=== PATIENT | female | born 1935 | race Hispanic/Latino ===

== ENCOUNTER 2018-12-20 16:18 | Inpatient (IN) | payer MEDICARE, OTHER ==
[2018-12-20 16:18] VITALS: BMI 18.6
--- NOTE | 2018-12-20 17:31 | ED PDOC ---
HPI: Trauma/Fall - HPI Time Seen by Provider: 12/20/18 16:30 Chief Complaint (Nursing): Trauma Chief Complaint (Provider): Fall Type injury History Per: Patient History/Exam Limitations: no limitations Injury Occurred (Timing): Just Before Arrival Location Of Injury: Right: Face, Hip Additional Complaint(s): 83 year old female with a history of hypothyroidism, high cholesterol and peripheral vascular disease presents to the ED for evaluation of a injuries to her face and hip that occurred after a fall just prior to arrival. Patient reports as she was saying goodbye to her friend outside of her house, she tripped, scratching her face on a hedge and landing on her right side. Patient ranks pain as "like a 20" at her hip, worsened when she rotates her foot toward midline. She does not know when her last Tetanus shot was. Reports that she took one Tylenol before arrival given to her by her daughter, who accompanied patient to the ED. Offers no other complaints. PMD: Dr. Sears - Fall Fall:Prior To Injury: Tripped Past Medical History Reviewed: Historical Data, Nursing Documentation, Vital Signs Vital Signs: Last Vital Signs Temp 98.3 F 12/20/18 16:23 Pulse 93 H 12/20/18 16:23 Resp 16 12/20/18 16:23 BP 159/97 H 12/20/18 16:23 Pulse Ox 100 12/20/18 16:23 Primary Care Provider: Non [facility] Provider, - Medical History PMH: Hypercholesterolemia, Hypothyroidism - Surgical History Surgical History: Appendectomy Denies: Pacemaker Other surgeries: EVAR, exploratory laparatomy, total hysterectomy - Family History Family History: States: Unknown Family Hx - Home Medications Home Medications: Ambulatory Orders Medication Instructions Recorded Levothyroxine [Synthroid] 75 mcg PO DAILY 12/20/18 amLODIPine [Norvasc] 5 mg PO QPM 12/20/18 - Allergies Allergies/Adverse Reactions: Allergies Allergy/AdvReac Type Severity Reaction Status Date / Time No Known Allergies Allergy Verified 12/20/18 16:22 Review of Systems ROS Statement: Except As Marked, All Systems Reviewed And Found Negative Musculoskeletal: Positive for: Other (right hip pain) Skin: Positive for: Other (laceration to face) Physical Exam - Reviewed Nursing Documentation Reviewed: Yes Vital Signs Reviewed: Yes - Physical Exam Appears: Positive for: No Acute Distress Head Exam: Positive for: ATRAUMATIC, NORMAL INSPECTION, NORMOCEPHALIC Skin: Positive for: Normal Color, Warm, Dry Eye Exam: Positive for: EOMI, Normal appearance, PERRL Neck: Positive for: Normal, Painless ROM, Supple Cardiovascular/Chest: Positive for: Regular Rate, Rhythm. Negative for: Murmur Respiratory: Positive for: Normal Breath Sounds. Negative for: Respiratory Distress Pulses-Radial (L): 2+ Pulses-Radial (R): 2+ Gastrointestinal/Abdominal: Positive for: Soft, Other (surgical scars). Negative for: Tenderness Extremity: Positive for: Tenderness (to palpation of right anterior superior iliac spine and right greater trochanter), Other (difference in leg length; right leg shorter than left) Neurological/Psych: Positive for: Awake, Alert, Normal Tone, Oriented (x 3). Negative for: Motor/Sensory Deficits - Laboratory Results Result Diagrams: 12/21/18 10:15 12/20/18 17:27 - ECG O2 Sat by Pulse Oximetry: 100 (RA) Pulse Ox Interpretation: Normal Medical Decision Making Medical Decision Makin:53 MDM: Labs including coagulation tests EKG, CXR and hip w pelvis x-ray 1 mg Morphine for pain Reassess 20:18 Hip with pelvis x-ray FINDINGS: BONES: Note is made of an acute mildly displaced right femoral intertrochanteric fracture. JOINTS: No dislocation. The joint spaces are normal. SOFT TISSUES: The soft tissues are unremarkable. IMPRESSION: Acute mildly displaced right femoral intertrochanteric fracture. Case discussed with is consultant orthopedist, Dr. Mosley. Pt to be admitted under Dr. Ovalle. Discussed the fracture with the patient and her daughter. Pain controlled at this time. --- Scribe Attestation: Documented by Olamide Hahn, acting as a scribe for Erin Ramirez MD. Provider Scribe Attestation: All medical record entries made by the Scribe were at my direction and personally dictated by me. I have reviewed the chart and agree that the record accurately reflects my personal performance of the history, physical exam, medical decision making, and the department course for this patient. I have also personally directed, reviewed, and agree with the discharge instructions and disposition. Disposition - Clinical Impression Clinical Impression: Intertrochanteric fracture of right hip - Disposition Disposition Time: 20:42 Condition: STABLE
[2018-12-20 17:36] LABS: BASO % 0.2 % (0.0-2.0); EOS % 0.2 % (0.0-4.0); HEMOGLOBIN 14.6 g/dL (12.0-16.0); LYMPH # 0.4 K/uL (1.0-4.3); LYMPH % 4.8 % (20.0-40.0); MEAN CELL VOLUME 96.1 fl (81.0-99.0); MEAN CORPUSCULAR HEMOGLOBIN 31.9 pg (27.0-31.0); MEAN CORPUSCULAR HGB CONC 33.2 g/dL (33.0-37.0); MEAN PLATELET VOLUME 8.1 fl (7.2-11.7); MONO # 0.8 K/uL (0.0-0.8); MONO % 8.8 % (0.0-10.0); NEUT # 8.1 K/uL (1.8-7.0); PLATELET COUNT 164 K/uL (130-400); RBC 4.58 Mil/uL (3.80-5.20); WHITE BLOOD COUNT 9.4 K/uL (4.8-10.8)
[2018-12-20 17:43] LABS: BLOOD UREA NITROGEN 16 mg/dl (7-17); CALCIUM 9.2 mg/dL (8.4-10.2); GFR NON-AFRICAN AMERICAN > 60
[2018-12-20 17:45] LABS: INR 1.1; PROTHROMBIN TIME 12.1 Seconds (9.8-13.1)
[2018-12-20 17:48] LABS: PARTIAL THROMBOPLASTIN TIME 34.9 Seconds (25.6-37.1)
[2018-12-20 18:08] LABS: LARGE PLATELETS PRESENT; LYMPHOCYTE 4 % (20-50); MONOCYTE 11 % (0-10); NEUTROPHIL 84 % (42-75); PLATELET ESTIMATE NORMAL (NORMAL); REACTIVE LYMPHOCYTES 1 % (0-0); TOTAL CELLS COUNTED 100
[2018-12-20] MEDS ORDERED: Bacitracin 500 Units/gm Oint Foilpak UD ONE (18:12)
[2018-12-20] MEDS ORDERED: Morphine 4 MG/ML VIAL ONE (21:27)
[2018-12-20] MEDS ORDERED: Dextrose 5%/Lactated Ringer's 1,000 ML IV SCH (23:00)
[2018-12-21] MEDS: Levothyroxine 75 MCG TAB PO SCH (06:18)
--- NOTE | 2018-12-21 08:13 | CP.PCM.CON ---
History of Present Illness - History of Present Illness History of Present Illness: Orthopedic consult: Dr. Mosley Patient is an 83 y/o female who present with c/o R hip pain. She reports tripping over an oil line yesterday while at home working on her yard. She fell into a call onto her right side. She complains of pain located to the lateral aspect of her knee. She describes it at dull, intermittent and worse with movement, alleviated with rest. The pain is associated with swelling and limb deformity. She is unable to WB due to the pain. She did not use any assistive aids to ambulate prior to her fall. She denies any radiation of pain/nuumbness/tingling. She also denies CP/SOB/N/V/D/fever/dysuria/melena. She has significant history of abdominal aortic aneurysm repair with Dr. Wang. PMH: AAA, HTN, hypothyroid PSH: AAA repair, bilateral breast lumpectomy, NELLY meds: as per med rec NKDA SH: former smoker, denies ETOH/drug use. Lives at home with daughter. Has 2 flights of stairs. Review of Systems - Review of Systems All systems: reviewed and no additional remarkable complaints except Review of Systems: as per HPI Past Patient History - Past Medical History & Family History Past Medical History?: Yes Past Family History: Reviewed and not pertinent - Past Social History Smoking Status: Never Smoked - CARDIAC Hx Cardiac Disorders: Yes (TRIPLE A REPAIR,STENT PLACEMENT) Hx Hypertension: Yes Hx Peripheral Vascular Disease: Yes - NEUROLOGICAL Hx Paralysis: No - HEENT Hx HEENT Problems: (WEARS RX GLASSES) - ENDOCRINE/METABOLIC Hx Endocrine Disorders: Yes Hx Hypothyroidism: Yes - HEMATOLOGICAL/ONCOLOGICAL Hx Blood Transfusions: No Hx Blood Transfusion Reaction: No - MUSCULOSKELETAL/RHEUMATOLOGICAL Hx Musculoskeletal Disorders: Yes Hx Falls: Yes - GENITOURINARY/GYNECOLOGICAL Hx Genitourinary Disorders: Yes (LUMPECTOMY TO BOTH BREASTS,MASTITIS,LYMPH NODES REMOVED,TOTAL HYSTERECTOMY) - PSYCHIATRIC Hx Emotional Abuse: No Hx Physical Abuse: No Hx Substance Use: No - SURGICAL HISTORY Hx Appendectomy: Yes Hx Coronary Stent: Yes - ANESTHESIA Hx Anesthesia Reactions: Yes Hx Malignant Hyperthermia: No Meds Allergies/Adverse Reactions: Allergies Allergy/AdvReac Type Severity Reaction Status Date / Time No Known Allergies Allergy Verified 12/20/18 16:22 - Medications Medications: Current Medications Amlodipine Besylate (Norvasc) 5 mg PO QPM [facility] Last Admin: 12/20/18 23:43 Dose: 5 mg Dextrose/Lactated Ringer's (Dextrose 5%/Lactated Ringer's) 1,000 mls @ 80 mls/hr IV .[id number] [facility] Stop: 12/21/18 22:53 Last Admin: 12/20/18 23:42 Dose: 80 mls/hr Levothyroxine Sodium (Synthroid) 75 mcg PO DAILY@0630 [facility] Last Admin: 12/21/18 06:18 Dose: Not Given Morphine Sulfate (Morphine) 2 mg IVP Q4 PRN PRN Reason: Pain, severe (8-10) Pantoprazole Sodium (Protonix Inj) 40 mg IVP DAILY [facility] Physical Exam - Constitutional Appears: Well, No Acute Distress - Head Exam Head Exam: ATRAUMATIC, NORMOCEPHALIC - Eye Exam Eye Exam: EOMI, Normal appearance - ENT Exam ENT Exam: Mucous Membranes Moist Additional comments: right small facial lesion from fall - Respiratory Exam Respiratory Exam: NORMAL BREATHING PATTERN - Extremities Exam Additional comments: RLE: mild swelling +shortened/ER limb + tenderness over greater troch sensation intact SP/DP/TN motor intact EHL/FHL/TA/G pedal pulse intact calves soft NT b/l - Neurological Exam Neurological exam: Alert, Oriented x3 - Psychiatric Exam Psychiatric exam: Normal Affect, Normal Mood - Skin Skin Exam: Normal Color, Warm Results - Vital Signs Recent Vital Signs: Last Vital Signs Temp 98.1 F 12/21/18 00:28 Pulse 100 H 12/21/18 00:28 Resp 19 12/21/18 00:28 BP 150/85 12/21/18 00:28 Pulse Ox 95 12/21/18 00:28 - Labs Result Diagrams: 12/21/18 10:15 12/20/18 17:27 Labs: Laboratory Results - last 24 hr 12/20/18 12/20/18 12/20/18 17:27 17:27 17:27 WBC 9.4 RBC 4.58 Hgb 14.6 Hct 44.0 MCV 96.1 MCH 31.9 H MCHC 33.2 RDW 13.0 Plt Count 164 MPV 8.1 Neut % (Auto) 86.0 H Lymph % (Auto) 4.8 L [place] % (Auto) 8.8 Eos % (Auto) 0.2 Baso % (Auto) 0.2 Neut # (Auto) 8.1 H Lymph # (Auto) 0.4 L [place] # (Auto) 0.8 Eos # (Auto) 0.0 Baso # (Auto) 0.0 Neutrophils % (Manual) 84 H Lymphocytes % (Manual) 4 L Reactive Lymphs % 1 H Monocytes % (Manual) 11 H Platelet Estimate Normal Large Platelets Present PT 12.1 INR 1.1 APTT 34.9 Sodium 137 Potassium 3.9 Chloride 100 Carbon Dioxide 29 Anion Gap 12 BUN 16 Creatinine 0.7 Est GFR ( Amer) > 60 Est GFR (Non-Af Amer) > 60 Random Glucose 113 H Calcium 9.2 Blood Type Antibody Screen BBK History Checked 12/20/18 17:27 WBC RBC Hgb Hct MCV MCH MCHC RDW Plt Count MPV Neut % (Auto) Lymph % (Auto) [place] % (Auto) Eos % (Auto) Baso % (Auto) Neut # (Auto) Lymph # (Auto) [place] # (Auto) Eos # (Auto) Baso # (Auto) Neutrophils % (Manual) Lymphocytes % (Manual) Reactive Lymphs % Monocytes % (Manual) Platelet Estimate Large Platelets PT INR APTT Sodium Potassium Chloride Carbon Dioxide Anion Gap BUN Creatinine Est GFR ( Amer) Est GFR (Non-Af Amer) Random Glucose Calcium Blood Type A POSITIVE Antibody Screen Negative BBK History Checked Patient has bt - Impressions Impression: Accession No. : [id number] Patient Name / ID : PAT VILLALTA G / [id number] Exam Date : 12/20/2018 17:16:30 ( Approved ) Study Comment : Sex / Age : F / 83Y Creator : Jessica Mejía Dictator : Jessica Mejía Roller Operator : Consultants Intern : Jessica Mejía Approver2 : Report Date : 12/21/2018 09:35:03 My Comment : Date of service: 12/20/2018 PROCEDURE: HISTORY: right hip pain COMPARISON: None TECHNIQUE: Four views FINDINGS: At the base of the right femur/intertrochanteric region a complete fracture suggested femoral head resides in the acetabulum. Extensive endo vascular grafting of the descending abdominal aorta/common iliac artery bifurcation additional left hemipelvic stenting. Atherosclerotic vascular calcifications present. IMPRESSION: Proximal right femoral fracture-intertrochanteric involvement suspect No dislocation seen.Other findings as above. Accession No. : [id number] Patient Name / ID : PAT Barajas / [id number] Exam Date : 12/20/2018 20:57:41 ( Approved ) Study Comment : Sex / Age : F / 83Y Creator : Ronald Melendez MD Dictator : Ronald Melendez MD Roller Operator : Consultants Intern : Ronald Melendez MD Approver2 : Report Date : 12/21/2018 10:50:17 My Comment : Date of service: 12/20/2018 PROCEDURE: HISTORY: Right intertrochanteric hip fracture COMPARISON: December 20, 2018. Plain film radiographs right hip TECHNIQUE: 2.5 mm axial acquisition and display. Coronal and sagittal reconstructions. 3D volume rendering. Dose report (mGy-cm): 372.01 FINDINGS: Redemonstration of acute inter trochanteric fracture. Preservation of femoral acetabular relationship. Intact pelvic ring as visualized. Lateral soft tissue injury/contusion. IMPRESSION: Redemonstration of acute inter trochanteric fracture. The fracture extends from the greater trochanter, obliquely and extends to the lesser trochanter. There is a component of impaction. Preservation of femoral acetabular relationship. Concordant results (preliminary interpretation) provided by HARRY DICKERSON. Procedure Completed: 21:00. Preliminary Report: Interpreted and electronically signed: 21:40. Final Interpretation: 10:50. December 21, 2018. Assessment & Plan (1) Intertrochanteric fracture of right hip Assessment and Plan: Dr. Mosley has seen, examined patient and reviewed her imaging. The plan is to perform R hip ORIF with IM nail. -Medical/cardiac clearance -Hold anticoagulants -bedrest -above d/w Dr. Mosley who agrees Status: Acute - Date & Time Date: 12/21/18 Time: 08:18
--- NOTE | 2018-12-21 09:35 | RAD ---
Date of service: 12/20/2018 HISTORY: possible admission COMPARISON: No prior. TECHNIQUE: 1 view obtained. FINDINGS: LUNGS: No consolidation. By apical coarse bronchovascular markings. Bilateral hyperaeration-COPD inferred. PLEURA: No significant pleural effusion identified, no pneumothorax apparent. CARDIOVASCULAR: There is presence of aortic atherosclerotic calcification on x-ray. Cardiomegaly. No significant appearing pulmonary venous congestion. OSSEOUS STRUCTURES: Generalized osteopenia. Leftward convexity thoraco lumbar junction. VISUALIZED UPPER ABDOMEN: Descending abdominal aortic partially visualized endovascular stent graft OTHER FINDINGS: None. IMPRESSION: No infiltrate. COPD. Mild cardiomegaly.Atherosclerotic vascular calcifications present. Other findings as above.
--- NOTE | 2018-12-21 09:38 | RAD ---
Date of service: 12/20/2018 PROCEDURE: HISTORY: right hip pain COMPARISON: None TECHNIQUE: Four views FINDINGS: At the base of the right femur/intertrochanteric region a complete fracture suggested femoral head resides in the acetabulum. Extensive endo vascular grafting of the descending abdominal aorta/common iliac artery bifurcation additional left hemipelvic stenting. Atherosclerotic vascular calcifications present. IMPRESSION: Proximal right femoral fracture-intertrochanteric involvement suspect No dislocation seen.Other findings as above.
[2018-12-21 10:48] LABS: HEMOGLOBIN 14.1 g/dL (12.0-16.0); MEAN CELL VOLUME 97.4 fl (81.0-99.0); MEAN CORPUSCULAR HGB CONC 32.8 g/dL (33.0-37.0); RBC 4.43 Mil/uL (3.80-5.20)
--- NOTE | 2018-12-21 10:54 | CT ---
Date of service: 12/20/2018 PROCEDURE: HISTORY: Right intertrochanteric hip fracture COMPARISON: December 20, 2018. Plain film radiographs right hip TECHNIQUE: 2.5 mm axial acquisition and display. Coronal and sagittal reconstructions. 3D volume rendering. Dose report (mGy-cm): 372.01 FINDINGS: Redemonstration of acute inter trochanteric fracture. Preservation of femoral acetabular relationship. Intact pelvic ring as visualized. Lateral soft tissue injury/contusion. IMPRESSION: Redemonstration of acute inter trochanteric fracture. The fracture extends from the greater trochanter, obliquely and extends to the lesser trochanter. There is a component of impaction. Preservation of femoral acetabular relationship. Concordant results (preliminary interpretation) provided by HARRY DICKERSON. Procedure Completed: 21:00. Preliminary Report: Interpreted and electronically signed: 21:40. Final Interpretation: 10:50. December 21, 2018.
--- NOTE | 2018-12-21 11:50 | CP.PCM.CON ---
History of Present Illness - History of Present Illness History of Present Illness: THE PATIENT IS AN 83 YEAR OLD FEMALE WHO TRIPPED OVER AN OIL DELIVERY HOSE AND FELL AND BROKE HER RIGHT HIP. THE PATIENT ALSO HAS A HISTORY OF HYPERTENSION, HYPOTHYROIDISM AND SHE HAD AN ABDOMINAL AORTIC ANEURYSM REPAIR IN 2012. I HAVE BEEN ASKED TO SEE HER ON CARDIOLOGY CONSULT PRE-OPERATIVELY. SHE DENIES CHEST PAIN OR A CAD HISTORY. Past Patient History - Past Medical History & Family History Past Medical History?: Yes Past Family History: Reviewed and not pertinent - Past Social History Smoking Status: Never Smoked - CARDIAC Hx Cardiac Disorders: Yes (TRIPLE A REPAIR,STENT PLACEMENT) Hx Hypertension: Yes Hx Peripheral Vascular Disease: Yes - NEUROLOGICAL Hx Paralysis: No - HEENT Hx HEENT Problems: (WEARS RX GLASSES) - ENDOCRINE/METABOLIC Hx Endocrine Disorders: Yes Hx Hypothyroidism: Yes - HEMATOLOGICAL/ONCOLOGICAL Hx Blood Transfusions: No Hx Blood Transfusion Reaction: No - MUSCULOSKELETAL/RHEUMATOLOGICAL Hx Musculoskeletal Disorders: Yes Hx Falls: Yes - GENITOURINARY/GYNECOLOGICAL Hx Genitourinary Disorders: Yes (LUMPECTOMY TO BOTH BREASTS,MASTITIS,LYMPH NODES REMOVED,TOTAL HYSTERECTOMY) - PSYCHIATRIC Hx Emotional Abuse: No Hx Physical Abuse: No Hx Substance Use: No - SURGICAL HISTORY Hx Appendectomy: Yes Hx Coronary Stent: Yes - ANESTHESIA Hx Anesthesia Reactions: Yes Hx Malignant Hyperthermia: No Meds Allergies/Adverse Reactions: Allergies Allergy/AdvReac Type Severity Reaction Status Date / Time No Known Allergies Allergy Verified 12/20/18 16:22 - Medications Medications: Current Medications Amlodipine Besylate (Norvasc) 5 mg PO QPM [facility] Last Admin: 12/20/18 23:43 Dose: 5 mg Levothyroxine Sodium (Synthroid) 75 mcg PO DAILY@0630 [facility] Last Admin: 12/21/18 06:18 Dose: Not Given Morphine Sulfate (Morphine) 2 mg IVP Q4 PRN PRN Reason: Pain, severe (8-10) Pantoprazole Sodium (Protonix Inj) 40 mg IVP DAILY [facility] Last Admin: 12/21/18 10:26 Dose: 40 mg Physical Exam - Respiratory Exam Respiratory Exam: Clear to Auscultation Bilateral - Cardiovascular Exam Cardiovascular Exam: REGULAR RHYTHM, +S1, +S2, Systolic Murmur - Extremities Exam Additional comments: NO LE EDEMA Results - Vital Signs Recent Vital Signs: Last Vital Signs Temp 98.5 F 12/21/18 08:40 Pulse 82 12/21/18 08:40 Resp 20 12/21/18 08:40 BP 139/94 H 12/21/18 08:40 Pulse Ox 94 L 12/21/18 08:40 - Labs Result Diagrams: 12/21/18 10:15 12/20/18 17:27 Labs: Laboratory Results - last 24 hr 12/20/18 12/20/18 12/20/18 17:27 17:27 17:27 WBC 9.4 RBC 4.58 Hgb 14.6 Hct 44.0 MCV 96.1 MCH 31.9 H MCHC 33.2 RDW 13.0 Plt Count 164 MPV 8.1 Neut % (Auto) 86.0 H Lymph % (Auto) 4.8 L [place] % (Auto) 8.8 Eos % (Auto) 0.2 Baso % (Auto) 0.2 Neut # (Auto) 8.1 H Lymph # (Auto) 0.4 L [place] # (Auto) 0.8 Eos # (Auto) 0.0 Baso # (Auto) 0.0 Neutrophils % (Manual) 84 H Lymphocytes % (Manual) 4 L Reactive Lymphs % 1 H Monocytes % (Manual) 11 H Platelet Estimate Normal Large Platelets Present PT 12.1 INR 1.1 APTT 34.9 Sodium 137 Potassium 3.9 Chloride 100 Carbon Dioxide 29 Anion Gap 12 BUN 16 Creatinine 0.7 Est GFR ( Amer) > 60 Est GFR (Non-Af Amer) > 60 Random Glucose 113 H Calcium 9.2 Blood Type Antibody Screen BBK History Checked 12/20/18 12/21/18 17:27 10:15 WBC 8.0 RBC 4.43 Hgb 14.1 Hct 43.1 MCV 97.4 MCH 32.0 H MCHC 32.8 L RDW 13.0 Plt Count 142 MPV Neut % (Auto) Lymph % (Auto) [place] % (Auto) Eos % (Auto) Baso % (Auto) Neut # (Auto) Lymph # (Auto) [place] # (Auto) Eos # (Auto) Baso # (Auto) Neutrophils % (Manual) Lymphocytes % (Manual) Reactive Lymphs % Monocytes % (Manual) Platelet Estimate Large Platelets PT INR APTT Sodium Potassium Chloride Carbon Dioxide Anion Gap BUN Creatinine Est GFR ( Amer) Est GFR (Non-Af Amer) Random Glucose Calcium Blood Type A POSITIVE Antibody Screen Negative BBK History Checked Patient has bt Assessment & Plan - Assessment and Plan (Free Text) Assessment: FALL WITH RIGHT HIP FRACTURE HYPERTENSION HYPOTHYROIDISM Plan: CONTINUE AMLODIPINE AND LEVOTHYROXINE ECHOCARDIOGRAM ORDERED
[2018-12-21 15:28] LABS: SQUAMOUS EPITHIAL 6 /hpf (0-5); URINE BACTERIA FEW (<OCC); URINE BILIRUBIN NEGATIVE (NEGATIVE); URINE BLOOD SMALL (NEGATIVE); URINE COLOR YELLOW (YELLOW); URINE GLUCOSE (UA) NEG (NEGATIVE); URINE LEUKOCYTE ESTERASE TRACE Leu/uL (Negative); URINE PROTEIN NEGATIVE (NEGATIVE); URINE UROBILINOGEN 0.2-1.0 mg/dL (0.2-1.0)
[2018-12-21 15:30] LABS: URINE CLARITY Hazy (Clear)
--- NOTE | 2018-12-21 17:57 | CARD ---
APPROVED REPORT Date of service: 12/20/2018 EKG Measurement Heart [id number] <Conclusion> Sinus rhythm with premature atrial complexes Otherwise normal ECG
--- NOTE | 2018-12-21 18:18 | CARD ---
APPROVED REPORT Date of service: 12/21/2018 EXAM: Two-dimensional and M-mode echocardiogram with Doppler and color Doppler. Other Information Quality : GoodRhythm : NSR INDICATION Pre-Op ASHD 2D DIMENSIONS IVSd1.03 (0.7-1.1cm)LVDd4.27 (3.9-5.9cm) LVOT Diameter2.01 (1.8-2.4cm)PWd1.19 (0.7-1.1cm) IVSs1.10 (0.8-1.2cm)LVDs4.19 (2.5-4.0cm) FS (%) 1.9 %PWs0.98 (0.8-1.2cm) M-Mode DIMENSIONS Left Atrium (MM)3.14 (2.5-4.0cm)IVSd1.03 (0.7-1.1cm) Aortic Root2.68 (2.2-3.7cm)LVDd4.81 (4.0-5.6cm) Aortic Cusp Exc.1.60 (1.5-2.0cm)PWd0.85 (0.7-1.1cm) IVSs1.16 cmFS (%) 22 % LVDs3.76 (2.0-3.8cm)PWs1.31 cm Aortic Valve AoV Peak Cpqrrlts594.9cm/sAoV VTI24.3cmAO Peak GR.7mmHg LVOT Peak Dgiuxwhc29.1cm/sLVOT VTI15.47cmAO Mean GR.4mmHg MALCOLM (VMAX)1.83tj9OGE (VTI)1.27cm2 Mitral Valve MV E Neuishyh59.9cm/sMV DECEL [id number] A Isbdqxcq24.2cm/s MV RSC95ijW/A ratio0.5MVA (PHT)2.41cm2 TDI Lateral E' Peak V5.70cm/sMedial E' Peak V4.32cm/sE/Lateral E'8.6 E/Medial E'11.3 Tricuspid Valve TR Peak Qsupbblg180rz/sRAP [id number] Peak Gr.29mmHg PERQ41vnKc LEFT VENTRICLE The left ventricle is normal size. There is normal left ventricular wall thickness. The systolic function is mildly impaired. The estimated ejection fraction is -45% There is global hypokinesis of the left ventricle. Transmitral Doppler flow pattern is Grade I-abnormal relaxation pattern. No left ventricle thrombus noted on this study. There is no ventricular septal defect visualized. There is no left ventricular aneurysm. There is no mass noted in the left ventricle. RIGHT VENTRICLE The right ventricle is normal size. There is normal right ventricular wall thickness. The right ventricular systolic function is normal. ATRIA The left atrium size is normal. The right atrium size is normal. The interatrial septum is aneurysmal. AORTIC VALVE The aortic valve is normal in structure. No aortic regurgitation is present. There is no aortic valvular stenosis. There is no aortic valvular vegetation. MITRAL VALVE The mitral valve is normal in structure. There is no evidence of mitral valve prolapse. There is no mitral valve stenosis. There is no mitral valve regurgitation noted. TRICUSPID VALVE The tricuspid valve is normal in structure. There is moderate tricuspid valve regurgitation noted. RVSP is calculated at 40 mm Hg. There is no tricuspid valve prolapse or vegetation. There is no tricuspid valve stenosis. PULMONIC VALVE The pulmonary valve is normal in structure. There is no pulmonic valvular regurgitation. There is no pulmonic valvular stenosis. GREAT VESSELS The aortic root is normal in size. The ascending aorta is normal in size. The pulmonary artery is normal. The IVC is dilated in size and collapses >50% with inspiration. PERICARDIAL EFFUSION There is no pericardial effusion. There is no pleural effusion. <Conclusion> Technically difficult study. The systolic function is mildly impaired. The estimated ejection fraction is -45% There is global hypokinesis of the left ventricle. Transmitral Doppler flow pattern is Grade I-abnormal relaxation pattern. The left atrium size is normal. There is moderate tricuspid valve regurgitation noted. RVSP is calculated at 40 mm Hg. The IVC is dilated in size and collapses >50% with inspiration.
[2018-12-21] MEDS ORDERED: cefTRIAXone 1,000 MG in PED IV SYRINGE 1 SYR IVPB STA (18:53)
--- NOTE | 2018-12-21 21:17 | HP ---
HISTORY OF PRESENT ILLNESS: Ms. Elizalde is an 83-year-old female who was admitted because of right hip pain. She indicates that she was at home and accidentally tripped over the cable wire that was delivering fuel and fell and sustained trauma to her right hip. She also sustained a puncture wound of right lower lip . She was brought to the emergency room and found to have a fracture of the right hip. PAST MEDICAL HISTORY: She has a past medical history of abdomen aortic aneurysm surgery years ago, hypertension, and hypothyroidism. FAMILY HISTORY: Nonrevealing. SOCIAL HISTORY: She is a former smoker, does not use drugs or use alcohol and lives at home with daughter. She was very active up until this injury. PHYSICAL EXAMINATION: GENERAL: The patient is alert and oriented. She is skinny. VITAL SIGNS: Blood pressure of 139/94, pulse of 82, respiratory rate 20. She is afebrile. O2 sat 94% on room air. SKIN: Shows fair turgor. HEENT: Pupils are equal and reactive to light and accommodation. JVP flat. Mouth shows fair hygiene. There is a puncture wound over the right lower lip. LUNGS: Clear. HEART: Regular. BREASTS: Normal. ABDOMEN: Soft, nontender. No organomegaly. There is scar of AAA surgery. GENITALIA: Deferred. RECTAL: Deferred. EXTREMITIES: There is tenderness over the right hip with lateral rotation of the right lower extremity and right lower extremity is shorter than left. No tenderness of the left lower extremity. CENTRAL NERVOUS SYSTEM: The patient is alert and oriented x3. No gross deficits appreciated. LABORATORY DATA AND DIAGNOSTIC DATA: WBC 9.4, hemoglobin 14.6, platelet count 164,000. PT 12.1 and INR 1.1. Sodium 137, potassium 3.9, BUN of 16, creatinine 0.7, serum glucose 113. Chest x-ray; mild cardiomegaly and arteriosclerotic cardiovascular disease, no other findings. EKG; official report pending, but read by me indicates sinus rhythm with premature supraventricular complexes, rule out anterior infarct, age undetermined. CT scan of lower extremity official report pending. X-ray of both hips is remarkable for a prominent right femoral fracture, intertrochanteric involvement suspected. IMPRESSION: Right hip fracture, history of abdominal aortic aneurysm surgery in the past, history of hypertension, history of hypothyroidism. PLAN: The plan is orthopedic surgery evaluation for surgical repair of hip fracture. Would obtain a Cardiology clearance prior to surgery and analgesics will be given for pain. Jadon Maldonado MD
[2018-12-22] MEDS: Potassium Ch 20mEq in D5-1/2NS 1,000 ML IV SCH ×2 (00:10→22:00)
[2018-12-22] MEDS: Levothyroxine 75 MCG TAB PO SCH (07:25)
--- NOTE | 2018-12-22 08:12 | CP.PCM.PN ---
Subjective - Date & Time of Evaluation Date of Evaluation: 12/22/18 Time of Evaluation: 08:12 - Subjective Subjective: NO NEW CLINICAL FINDINGS ECHO REPORT NOTED FOR R HIP SURGERY TODAY AWAIT CARDIAC CL;EARANCE WILL PROBABLY NEED CARDIAC EVAL POST-OP WILL NEED ACUTE REHAB Objective - Vital Signs/Intake and Output Vital Signs (last 24 hours): Temp Pulse Resp BP Pulse Ox 98.0 F 66 19 146/79 96 12/22/18 07:51 12/22/18 07:51 12/22/18 07:51 12/22/18 07:51 12/22/18 07:51 - Medications Medications: Current Medications Amlodipine Besylate (Norvasc) 5 mg PO QPM [facility] Last Admin: 12/21/18 17:24 Dose: 5 mg Cholecalciferol (Vitamin D) 1,000 intlu PO DAILY [facility] Ceftriaxone Sodium 1 gm/ (Sodium Chloride) 100 mls @ 100 mls/hr IVPB DAILY [facility] Potassium Chloride/Dextrose/Sod Cl (Potassium Chl 20 Meq In D5-1/2ns) 1,000 mls @ 90 mls/hr IV .[id number] [facility] Stop: 12/22/18 23:49 Last Admin: 12/22/18 00:10 Dose: 90 mls/hr Levothyroxine Sodium (Synthroid) 75 mcg PO DAILY@0630 [facility] Last Admin: 12/22/18 07:25 Dose: Not Given Morphine Sulfate (Morphine) 2 mg IVP Q4 PRN PRN Reason: Pain, severe (8-10) Last Admin: 12/22/18 00:09 Dose: 2 mg Pantoprazole Sodium (Protonix Inj) 40 mg IVP DAILY [facility] Last Admin: 12/21/18 10:26 Dose: 40 mg - Labs Labs: 12/21/18 10:15 12/20/18 17:27 PT 12.1 Seconds (9.8-13.1) 12/20/18 17:27 INR 1.1 12/20/18 17:27 APTT 34.9 Seconds (25.6-37.1) 12/20/18 17:27
[2018-12-22] MEDS: Cholecalciferol 1,000 INTLU TAB PO SCH ×2 (09:00→09:05)
--- NOTE | 2018-12-22 10:16 | CP.PCM.PN ---
Subjective - Date & Time of Evaluation Date of Evaluation: 12/22/18 Time of Evaluation: 09:30 - Subjective Subjective: NO CHEST PAIN OR SOB Objective - Vital Signs/Intake and Output Vital Signs (last 24 hours): Temp Pulse Resp BP Pulse Ox 98.0 F 66 19 146/79 96 12/22/18 07:51 12/22/18 07:51 12/22/18 07:51 12/22/18 07:51 12/22/18 07:51 - Medications Medications: Current Medications Amlodipine Besylate (Norvasc) 5 mg PO QPM [facility] Last Admin: 12/21/18 17:24 Dose: 5 mg Cholecalciferol (Vitamin D) 1,000 intlu PO DAILY [facility] Last Admin: 12/22/18 09:05 Dose: Not Given Ceftriaxone Sodium 1 gm/ (Sodium Chloride) 100 mls @ 100 mls/hr IVPB DAILY [facility] Last Admin: 12/22/18 08:59 Dose: 100 mls/hr Potassium Chloride/Dextrose/Sod Cl (Potassium Chl 20 Meq In D5-1/2ns) 1,000 mls @ 90 mls/hr IV .Q11H7M [facility] Stop: 12/22/18 23:49 Last Admin: 12/22/18 00:10 Dose: 90 mls/hr Levothyroxine Sodium (Synthroid) 75 mcg PO DAILY@0630 [facility] Last Admin: 12/22/18 07:25 Dose: Not Given Morphine Sulfate (Morphine) 2 mg IVP Q4 PRN PRN Reason: Pain, severe (8-10) Last Admin: 12/22/18 00:09 Dose: 2 mg Pantoprazole Sodium (Protonix Inj) 40 mg IVP DAILY [facility] Last Admin: 12/22/18 09:00 Dose: 40 mg - Labs Labs: 12/21/18 10:15 12/20/18 17:27 PT 12.1 Seconds (9.8-13.1) 12/20/18 17:27 INR 1.1 12/20/18 17:27 APTT 34.9 Seconds (25.6-37.1) 12/20/18 17:27 - Respiratory Exam Respiratory Exam: Clear to Ausculation Bilateral - Cardiovascular Exam Cardiovascular Exam: REGULAR RHYTHM, +S1, +S2, Murmur - Additional Findings Additional findings: ECHOCARDIOGRAM REVIEWED BY ME, THE LV SYSTOLIC FUNCTION APPEARED TO VARY FROM ONE VIEW TO ANOTHER AND IS BEST ASSESSED ON THE APICAL 4 CHAMBER VIEW WHERE THE LVEF IS ~30-40% IN MY OPINION, MODERATE TO SEVERE TR WITH PASP OF ~ 40 MMHG Assessment and Plan - Assessment and Plan (Free Text) Assessment: FALL WITH RIGHT HIP FRACTURE HYPERTENSION HYPOTHYROIDISM Plan: CONTINUE AMLODIPINE THE PATIENT IS CLEARED FOR ORTHOPEDIC SURGERY PATIENT DISCUSSED WITH DR CASTILLO AND HER DAUGHTER
[2018-12-22] MEDS ORDERED: Thrombin Topical 5,000 Int Units Spray Kit ONE (13:56)
[2018-12-22] MEDS ORDERED: EPINEPHrine 1 mg/ml (1:1000) Inj ONE (13:56)
[2018-12-22] MEDS ORDERED: Absorbable Gelatin Sponge Size 12-7 ONE (13:56)
[2018-12-22] MEDS ORDERED: Bacitracin Ointment 30 GM TUBE ONE (13:56)
[2018-12-22] MEDS ORDERED: Morphine 5 mg/10 ml preservative-free Inj(Duramorph) ONE (14:07)
[2018-12-22] MEDS ORDERED: Etomidate 20 mg/10ml Inj IV ONE (14:11)
[2018-12-22] MEDS ORDERED: Propofol 10 mg/ml Inj (20 ML) ONE (14:11)
[2018-12-22] MEDS ORDERED: Lidocaine 4% (Laryng-O-Jet) Kit MM ONE (14:11)
[2018-12-22] MEDS ORDERED: Rocuronium 10 mg/ml (5 ml) ONE ×2 (14:11→15:45)
[2018-12-22] MEDS ORDERED: Lactated Ringer's 1,000 ML IV ONE ×2 (14:25→14:30)
[2018-12-22] MEDS ORDERED: ePHEDrine 50 mg/ml Inj ONE (15:16)
[2018-12-22] MEDS ORDERED: Sodium Chloride 0.9% 10 ML IV ONE (15:16)
[2018-12-22] MEDS ORDERED: HEMOSTATIC MATRIX 10 ML DIS.NEEDLE TOP ONE (18:00)
--- NOTE | 2018-12-22 18:04 | PCM.SURG1 ---
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 basicervicasl/intertrochanteric fx R hi[p. synovits Post-Operative Diagnosis: as above Operation Performed: R THR. ORIF intertrocahnteric R femur fx. release iliopsoas tendon. autograft bone graft. computernavigation Specimen/Specimens Removed: bone/cartilage/synovium Estimated Blood Loss: EBL {In ML}: 125 Blood Products Given: N/A Drains Used: No Drains Post-Op Condition: Fair Date of Surgery/Procedure: 12/22/18 Time of Surgery/Procedure: 15:40 (time in room 14:25/aneastehsia indcution time 14:25)
[2018-12-22] MEDS ORDERED: Neostigmine 1:1000 (1 mg/ml) Inj ONE (18:21)
[2018-12-22] MEDS: Lactated Ringer's 1,000 ML IV SCH (18:37)
[2018-12-22] MEDS: Docusate-Senna 50 mg-8.6 mg Tab PO SCH (23:00)
[2018-12-23] MEDS: ceFAZolin 1 GM in Sodium Chloride 0.9% 100 ML IVPB SCH ×2 (00:40→09:16)
[2018-12-23 06:19] LABS: HEMOGLOBIN 10.7 g/dL (12.0-16.0); MEAN CELL VOLUME 96.5 fl (81.0-99.0); MEAN CORPUSCULAR HEMOGLOBIN 32.7 pg (27.0-31.0); MEAN CORPUSCULAR HGB CONC 33.9 g/dL (33.0-37.0); RBC 3.28 Mil/uL (3.80-5.20); RED CELL DISTRIBUTION WIDTH 12.5 % (11.5-14.5); WHITE BLOOD COUNT 6.9 K/uL (4.8-10.8)
[2018-12-23 06:44] LABS: BLOOD UREA NITROGEN 19 mg/dl (7-17); CALCIUM 7.8 mg/dL (8.4-10.2); GFR NON-AFRICAN AMERICAN > 60
[2018-12-23] MEDS: Levothyroxine 75 MCG TAB PO SCH (06:45)
[2018-12-23] MEDS: Lactated Ringer's 1,000 ML IV SCH ×3 (06:46→23:47)
--- NOTE | 2018-12-23 08:02 | CP.PCM.PN ---
Subjective - Date & Time of Evaluation Date of Evaluation: 12/23/18 Time of Evaluation: 09:00 - Subjective Subjective: Patient states she has a lot of pain in her hip. Denies numbness/tingling. Pain medication helps. Denies CP/SOB/dizziness. Objective - Vital Signs/Intake and Output Vital Signs (last 24 hours): Temp Pulse Resp BP Pulse Ox 97.3 F L 90 18 131/75 95 12/23/18 03:25 12/23/18 03:25 12/23/18 03:25 12/23/18 03:25 12/23/18 03:25 - Medications Medications: Current Medications Acetaminophen (Tylenol 325mg Tab) 975 mg PO Q8 [facility] Stop: 12/25/18 01:01 Last Admin: 12/23/18 00:37 Dose: 975 mg Amlodipine Besylate (Norvasc) 5 mg PO QPM [facility] Last Admin: 12/21/18 17:24 Dose: 5 mg Cholecalciferol (Vitamin D) 1,000 intlu PO DAILY [facility] Last Admin: 12/22/18 09:05 Dose: Not Given Enoxaparin Sodium (Lovenox) 40 mg SC DAILY [facility]; Protocol Ferrous Sulfate (Feosol) 325 mg PO BID [facility] Folic Acid (Folic Acid) 1 mg PO DAILY [facility] Ceftriaxone Sodium 1 gm/ (Sodium Chloride) 100 mls @ 100 mls/hr IVPB DAILY [facility] Last Admin: 12/22/18 08:59 Dose: 100 mls/hr Cefazolin Sodium 1 gm/ Sodium (Chloride) 100 mls @ 100 mls/hr IVPB Q8 [facility]; Protocol Stop: 12/23/18 09:59 Last Admin: 12/23/18 00:40 Dose: 100 mls/hr Lactated Ringer's (Lactated Ringer's) 1,000 mls @ 75 mls/hr IV .[id number] [facility] Last Admin: 12/23/18 06:46 Dose: 75 mls/hr Levothyroxine Sodium (Synthroid) 75 mcg PO DAILY@0630 [facility] Last Admin: 12/23/18 06:45 Dose: 75 mcg Morphine Sulfate (Morphine) 2 mg IVP Q4 PRN PRN Reason: Pain, severe (8-10) Last Admin: 12/23/18 06:42 Dose: 2 mg Morphine Sulfate (Morphine) 2 mg IVP Q4 PRN PRN Reason: Pain, severe (8-10) Ondansetron HCl (Zofran Inj) 4 mg IVP ONCE PRN PRN Reason: Nausea/Vomiting Oxycodone HCl (Oxycodone Immediate Release Tab) 5 mg PO Q4 PRN PRN Reason: Pain, moderate (4-7) Pantoprazole Sodium (Protonix Inj) 40 mg IVP DAILY [facility] Last Admin: 12/22/18 09:00 Dose: 40 mg Senna/Docusate Sodium (Senokot S 50 Mg-8.6 Mg) 1 tab PO [facility] Last Admin: 12/22/18 23:00 Dose: Not Given - Labs Labs: 12/23/18 05:25 12/23/18 05:25 PT 12.1 Seconds (9.8-13.1) 12/20/18 17:27 INR 1.1 12/20/18 17:27 APTT 34.9 Seconds (25.6-37.1) 12/20/18 17:27 - Extremities Exam Additional comments: Right hip dressing intact, +ROM ankle/toes, sensation intact +DP/PT pulses calves soft NT neg homans Assessment and Plan (1) Intertrochanteric fracture of right hip Assessment & Plan: POD#1 s/p THR PT/OT VTE proph d/c planning d/w Dr. Mosley, agrees with above Status: Acute (2) Acute blood loss anemia Assessment & Plan: monitor Status: Acute (3) Vitamin D deficiency Assessment & Plan: supp Status: Acute (4) Urinary tract infection Assessment & Plan: on admission on rocephin f/u culture (taken after start of rocephin) Status: Acute
--- NOTE | 2018-12-23 08:57 | CP.PCM.PN ---
Subjective - Date & Time of Evaluation Date of Evaluation: 12/23/18 Time of Evaluation: 08:58 - Subjective Subjective: S/P R HIP REPLACEMENT SURGERY STILL HAS POST-OP PAIN CLEARED FOR D/C TO ACUTE REHAB/SUBACUTE CARE BY ORTHO Objective - Vital Signs/Intake and Output Vital Signs (last 24 hours): Temp Pulse Resp BP Pulse Ox 98.5 F 88 19 116/65 94 L 12/23/18 08:05 12/23/18 08:05 12/23/18 08:05 12/23/18 08:05 12/23/18 08:05 Intake and Output: 12/23/18 12/23/18 06:59 18:59 Intake Total 750 Balance 750 - Medications Medications: Current Medications Acetaminophen (Tylenol 325mg Tab) 975 mg PO Q8 [facility] Stop: 12/25/18 01:01 Last Admin: 12/23/18 00:37 Dose: 975 mg Amlodipine Besylate (Norvasc) 5 mg PO QPM [facility] Last Admin: 12/21/18 17:24 Dose: 5 mg Cholecalciferol (Vitamin D) 1,000 intlu PO DAILY [facility] Last Admin: 12/22/18 09:05 Dose: Not Given Enoxaparin Sodium (Lovenox) 40 mg SC DAILY [facility]; Protocol Ferrous Sulfate (Feosol) 325 mg PO BID [facility] Folic Acid (Folic Acid) 1 mg PO DAILY [facility] Ceftriaxone Sodium 1 gm/ (Sodium Chloride) 100 mls @ 100 mls/hr IVPB DAILY [facility] Last Admin: 12/22/18 08:59 Dose: 100 mls/hr Cefazolin Sodium 1 gm/ Sodium (Chloride) 100 mls @ 100 mls/hr IVPB Q8 [facility]; Protocol Stop: 12/23/18 09:59 Last Admin: 12/23/18 00:40 Dose: 100 mls/hr Lactated Ringer's (Lactated Ringer's) 1,000 mls @ 75 mls/hr IV .[id number] [facility] Last Admin: 12/23/18 06:46 Dose: 75 mls/hr Levothyroxine Sodium (Synthroid) 75 mcg PO DAILY@0630 [facility] Last Admin: 12/23/18 06:45 Dose: 75 mcg Morphine Sulfate (Morphine) 2 mg IVP Q4 PRN PRN Reason: Pain, severe (8-10) Last Admin: 12/23/18 06:42 Dose: 2 mg Morphine Sulfate (Morphine) 2 mg IVP Q4 PRN PRN Reason: Pain, severe (8-10) Ondansetron HCl (Zofran Inj) 4 mg IVP ONCE PRN PRN Reason: Nausea/Vomiting Oxycodone HCl (Oxycodone Immediate Release Tab) 5 mg PO Q4 PRN PRN Reason: Pain, moderate (4-7) Pantoprazole Sodium (Protonix Inj) 40 mg IVP DAILY [facility] Last Admin: 12/22/18 09:00 Dose: 40 mg Senna/Docusate Sodium (Senokot S 50 Mg-8.6 Mg) 1 tab PO HS [facility] Last Admin: 12/22/18 23:00 Dose: Not Given - Labs Labs: 12/23/18 05:25 12/23/18 05:25 PT 12.1 Seconds (9.8-13.1) 12/20/18 17:27 INR 1.1 12/20/18 17:27 APTT 34.9 Seconds (25.6-37.1) 12/20/18 17:27 - Constitutional Appears: Well, No Acute Distress - Head Exam Head Exam: ATRAUMATIC, NORMAL INSPECTION, NORMOCEPHALIC - Eye Exam Eye Exam: EOMI, Normal appearance, PERRL Pupil Exam: NORMAL ACCOMODATION, PERRL - ENT Exam ENT Exam: Mucous Membranes Moist, Normal Exam - Neck Exam Neck Exam: Full ROM, Normal Inspection. absent: Lymphadenopathy - Respiratory Exam Respiratory Exam: Clear to Ausculation Bilateral, NORMAL BREATHING PATTERN - Cardiovascular Exam Cardiovascular Exam: REGULAR RHYTHM, +S1, +S2. absent: Murmur - GI/Abdominal Exam GI & Abdominal Exam: Soft, Normal Bowel Sounds. absent: Tenderness - Rectal Exam Rectal Exam: NORMAL INSPECTION - Extremities Exam Extremities Exam: Full ROM, Normal Capillary Refill, Normal Inspection, Tenderness. absent: Joint Swelling, Pedal Edema - Back Exam Back Exam: NORMAL INSPECTION - Neurological Exam Neurological Exam: Alert, Awake, CN II-XII Intact, Normal Gait, Oriented x3 - Psychiatric Exam Psychiatric exam: Normal Affect, Normal Mood - Skin Skin Exam: Dry, Intact, Normal Color, Warm Assessment and Plan - Assessment and Plan (Free Text) Assessment: S/P R TOTAL HIP REPLACEMENT SURGERY R HIP FRACTURE HTN UTI Plan: ER D/C TO SUBACUTE CARE/ACUTE REHAB IV ANTIBIOTIC RX
[2018-12-23] MEDS: oxyCODONE 5 mg Immediate Release Tab PO PRN ×2 (09:20→14:28)
[2018-12-23] MEDS: Cholecalciferol 1,000 INTLU TAB PO SCH (09:22)
--- NOTE | 2018-12-23 10:44 | CP.PCM.PN ---
Subjective - Date & Time of Evaluation Date of Evaluation: 12/13/18 Time of Evaluation: 10:00 - Subjective Subjective: NO CHEST PAIN OR SOB Objective - Vital Signs/Intake and Output Vital Signs (last 24 hours): Temp Pulse Resp BP Pulse Ox 98.5 F 88 19 116/65 94 L 12/23/18 08:05 12/23/18 08:05 12/23/18 08:05 12/23/18 08:05 12/23/18 08:05 Intake and Output: 12/23/18 12/23/18 06:59 18:59 Intake Total 750 Balance 750 - Medications Medications: Current Medications Acetaminophen (Tylenol 325mg Tab) 975 mg PO Q8 [facility] Stop: 12/25/18 01:01 Last Admin: 12/23/18 09:21 Dose: 975 mg Amlodipine Besylate (Norvasc) 5 mg PO QPM [facility] Last Admin: 12/21/18 17:24 Dose: 5 mg Cholecalciferol (Vitamin D) 1,000 intlu PO DAILY [facility] Last Admin: 12/23/18 09:22 Dose: 1,000 intlu Enoxaparin Sodium (Lovenox) 40 mg SC DAILY [facility]; Protocol Ferrous Sulfate (Feosol) 325 mg PO BID [facility] Last Admin: 12/23/18 09:21 Dose: 325 mg Folic Acid (Folic Acid) 1 mg PO DAILY [facility] Last Admin: 12/23/18 09:22 Dose: 1 mg Ceftriaxone Sodium 1 gm/ (Sodium Chloride) 100 mls @ 100 mls/hr IVPB DAILY [facility] Last Admin: 12/23/18 09:14 Dose: 100 mls/hr Lactated Ringer's (Lactated Ringer's) 1,000 mls @ 75 mls/hr IV .[id number] [facility] Last Admin: 12/23/18 06:46 Dose: 75 mls/hr Levothyroxine Sodium (Synthroid) 75 mcg PO DAILY@0630 [facility] Last Admin: 12/23/18 06:45 Dose: 75 mcg Morphine Sulfate (Morphine) 2 mg IVP Q4 PRN PRN Reason: Pain, severe (8-10) Last Admin: 12/23/18 06:42 Dose: 2 mg Morphine Sulfate (Morphine) 2 mg IVP Q4 PRN PRN Reason: Pain, severe (8-10) Ondansetron HCl (Zofran Inj) 4 mg IVP ONCE PRN PRN Reason: Nausea/Vomiting Oxycodone HCl (Oxycodone Immediate Release Tab) 5 mg PO Q4 PRN PRN Reason: Pain, moderate (4-7) Last Admin: 12/23/18 09:20 Dose: 5 mg Pantoprazole Sodium (Protonix Inj) 40 mg IVP DAILY [facility] Last Admin: 12/23/18 09:21 Dose: 40 mg Senna/Docusate Sodium (Senokot S 50 Mg-8.6 Mg) 1 tab PO HS [facility] Last Admin: 12/22/18 23:00 Dose: Not Given - Labs Labs: 12/23/18 05:25 12/23/18 05:25 PT 12.1 Seconds (9.8-13.1) 12/20/18 17:27 INR 1.1 12/20/18 17:27 APTT 34.9 Seconds (25.6-37.1) 12/20/18 17:27 - Respiratory Exam Respiratory Exam: Clear to Ausculation Bilateral - Cardiovascular Exam Cardiovascular Exam: REGULAR RHYTHM, +S1, +S2 - Extremities Exam Additional comments: NO LE EDEMA - Additional Findings Additional findings: OR NOTES REVIEWED WITH RIGHT THR Assessment and Plan - Assessment and Plan (Free Text) Assessment: RIGHT THR HYPERTENSION HYPOTHYROIDISM Plan: CONTINUE LOVENOX, AMLODIPINE AND LEVOTHYROXINE FOR PHYSICAL THERAPY
--- NOTE | 2018-12-23 12:48 | CARD ---
APPROVED REPORT Date of service: 12/23/2018 EKG Measurement Heart [id number] CT [id number] [id number] <Conclusion> Sinus tachycardia Nonspecific ST and T wave abnormality Abnormal ECG
--- NOTE | 2018-12-23 15:44 | RAD ---
PROCEDURE: Right Hip Radiographs. HISTORY: s/p R AMOS COMPARISON: Comparison made with radiographs of the pelvis right hip 12/20/2018 TECHNIQUE: 2 views obtained. FINDINGS: BONES: Status post right total hip arthroplasty. Hardware intact with satisfactory alignment JOINTS: As above. SOFT TISSUES: Unremarkable expected postoperative changes seen in the surrounding soft tissues OTHER FINDINGS: None. IMPRESSION: Status post right hip arthroplasty with satisfactory alignment.
[2018-12-23] MEDS: Enoxaparin 40 mg Syringe SC SCH (16:52)
[2018-12-23] MEDS: Docusate-Senna 50 mg-8.6 mg Tab PO SCH (21:05)
[2018-12-24] MEDS: Levothyroxine 75 MCG TAB PO SCH (06:01)
[2018-12-24 07:11] LABS: HEMOGLOBIN 9.7 g/dL (12.0-16.0); MEAN CELL VOLUME 96.2 fl (81.0-99.0); MEAN CORPUSCULAR HEMOGLOBIN 32.5 pg (27.0-31.0); MEAN CORPUSCULAR HGB CONC 33.8 g/dL (33.0-37.0); RBC 2.99 Mil/uL (3.80-5.20); RED CELL DISTRIBUTION WIDTH 12.4 % (11.5-14.5)
[2018-12-24 07:26] LABS: BLOOD UREA NITROGEN 18 mg/dl (7-17); GFR NON-AFRICAN AMERICAN > 60
[2018-12-24] MEDS: Cholecalciferol 1,000 INTLU TAB PO SCH (09:22)
[2018-12-24] MEDS: Enoxaparin 40 mg Syringe SC SCH (09:22)
--- NOTE | 2018-12-24 09:26 | CP.PCM.PN ---
Subjective - Date & Time of Evaluation Date of Evaluation: 12/24/18 Time of Evaluation: 09:30 - Subjective Subjective: FEELS BETTER TODAY NO CHEST PAINS/SOB LESS R HIP PAIN Objective - Vital Signs/Intake and Output Vital Signs (last 24 hours): Temp Pulse Resp BP Pulse Ox 98.8 F 77 18 125/67 94 L 12/24/18 07:37 12/24/18 07:37 12/24/18 07:37 12/24/18 07:37 12/24/18 07:37 - Medications Medications: Current Medications Acetaminophen (Tylenol 325mg Tab) 975 mg PO Q8 [facility] Stop: 12/25/18 01:01 Last Admin: 12/24/18 00:01 Dose: 975 mg Amlodipine Besylate (Norvasc) 5 mg PO QPM [facility] Last Admin: 12/23/18 18:52 Dose: 5 mg Cholecalciferol (Vitamin D) 1,000 intlu PO DAILY [facility] Last Admin: 12/24/18 09:22 Dose: 1,000 intlu Enoxaparin Sodium (Lovenox) 40 mg SC DAILY [facility]; Protocol Last Admin: 12/24/18 09:22 Dose: 40 mg Ferrous Sulfate (Feosol) 325 mg PO BID [facility] Last Admin: 12/24/18 09:22 Dose: 325 mg Folic Acid (Folic Acid) 1 mg PO DAILY [facility] Last Admin: 12/24/18 09:22 Dose: 1 mg Ceftriaxone Sodium 1 gm/ (Sodium Chloride) 100 mls @ 100 mls/hr IVPB DAILY [facility] Last Admin: 12/23/18 09:14 Dose: 100 mls/hr Lactated Ringer's (Lactated Ringer's) 1,000 mls @ 75 mls/hr IV .[id number] [facility] Last Admin: 12/23/18 23:47 Dose: 75 mls/hr Vancomycin HCl 1 gm/ Sodium (Chloride) 250 mls @ 166.667 mls/hr IVPB Q12@0000,1200 [facility]; Protocol Last Admin: 12/23/18 23:50 Dose: 166.667 mls/hr Levothyroxine Sodium (Synthroid) 75 mcg PO DAILY@0630 [facility] Last Admin: 12/24/18 06:01 Dose: 75 mcg Morphine Sulfate (Morphine) 2 mg IVP Q4 PRN PRN Reason: Pain, severe (8-10) Last Admin: 12/23/18 11:21 Dose: 2 mg Morphine Sulfate (Morphine) 2 mg IVP Q4 PRN PRN Reason: Pain, severe (8-10) Ondansetron HCl (Zofran Inj) 4 mg IVP ONCE PRN PRN Reason: Nausea/Vomiting Oxycodone HCl (Oxycodone Immediate Release Tab) 5 mg PO Q4 PRN PRN Reason: Pain, moderate (4-7) Last Admin: 12/23/18 14:28 Dose: 5 mg Pantoprazole Sodium (Protonix Inj) 40 mg IVP DAILY [facility] Last Admin: 12/24/18 09:21 Dose: 40 mg Senna/Docusate Sodium (Senokot S 50 Mg-8.6 Mg) 1 tab PO HS [facility] Last Admin: 12/23/18 21:05 Dose: 1 tab - Labs Labs: 12/24/18 05:15 12/24/18 05:15 PT 12.1 Seconds (9.8-13.1) 12/20/18 17:27 INR 1.1 12/20/18 17:27 APTT 34.9 Seconds (25.6-37.1) 12/20/18 17:27 - Constitutional Appears: No Acute Distress - Head Exam Head Exam: ATRAUMATIC, NORMAL INSPECTION, NORMOCEPHALIC - Eye Exam Eye Exam: EOMI, Normal appearance, PERRL Pupil Exam: NORMAL ACCOMODATION, PERRL - ENT Exam ENT Exam: Mucous Membranes Moist, Normal Exam - Neck Exam Neck Exam: Full ROM, Normal Inspection. absent: Lymphadenopathy - Respiratory Exam Respiratory Exam: Clear to Ausculation Bilateral, NORMAL BREATHING PATTERN - Cardiovascular Exam Cardiovascular Exam: REGULAR RHYTHM, +S1, +S2. absent: Murmur - GI/Abdominal Exam GI & Abdominal Exam: Soft, Normal Bowel Sounds. absent: Tenderness - Rectal Exam Rectal Exam: NORMAL INSPECTION - Extremities Exam Extremities Exam: Full ROM, Normal Capillary Refill, Normal Inspection, Tenderness. absent: Joint Swelling, Pedal Edema Additional comments: R HIP TENDERNESS - Back Exam Back Exam: NORMAL INSPECTION - Neurological Exam Neurological Exam: Alert, Awake, CN II-XII Intact, Normal Gait, Oriented x3 - Psychiatric Exam Psychiatric exam: Normal Affect, Normal Mood - Skin Skin Exam: Dry, Intact, Normal Color, Warm Assessment and Plan - Assessment and Plan (Free Text) Assessment: S/P R THR UTI TACHYCARDIA--RESOLVED--DUE TO UTI HTN Plan: CONTINUE CURRENT RX TRANSFER TO TCU IN AM
[2018-12-24] MEDS: Lactated Ringer's 1,000 ML IV SCH ×2 (09:30→23:52)
--- NOTE | 2018-12-24 13:31 | CP.PCM.PN ---
Subjective - Date & Time of Evaluation Date of Evaluation: 12/24/18 Time of Evaluation: 13:30 - Subjective Subjective: s- PT COMFORTABLE/pd #2 r thr PT COMFORTABLE/MINIMAL P[OST OP DISCOMFORT Objective - Vital Signs/Intake and Output Vital Signs (last 24 hours): Temp Pulse Resp BP Pulse Ox 98.8 F 79 18 125/67 94 L 12/24/18 07:37 12/24/18 10:44 12/24/18 07:37 12/24/18 07:37 12/24/18 07:37 - Medications Medications: Current Medications Acetaminophen (Tylenol 325mg Tab) 975 mg PO Q8 [facility] Stop: 12/25/18 01:01 Last Admin: 12/24/18 09:31 Dose: 975 mg Amlodipine Besylate (Norvasc) 5 mg PO QPM [facility] Last Admin: 12/23/18 18:52 Dose: 5 mg Cholecalciferol (Vitamin D) 1,000 intlu PO DAILY [facility] Last Admin: 12/24/18 09:22 Dose: 1,000 intlu Enoxaparin Sodium (Lovenox) 40 mg SC DAILY [facility]; Protocol Last Admin: 12/24/18 09:22 Dose: 40 mg Ferrous Sulfate (Feosol) 325 mg PO BID [facility] Last Admin: 12/24/18 09:22 Dose: 325 mg Folic Acid (Folic Acid) 1 mg PO DAILY [facility] Last Admin: 12/24/18 09:22 Dose: 1 mg Ceftriaxone Sodium 1 gm/ (Sodium Chloride) 100 mls @ 100 mls/hr IVPB DAILY [facility] Last Admin: 12/24/18 09:24 Dose: 100 mls/hr Vancomycin HCl 1 gm/ Sodium (Chloride) 250 mls @ 166.667 mls/hr IVPB Q12@0000,1200 [facility]; Protocol Last Admin: 12/24/18 12:00 Dose: 166.667 mls/hr Lactated Ringer's (Lactated Ringer's) 1,000 mls @ 40 mls/hr IV .Q24H [facility] Last Admin: 12/24/18 09:30 Dose: 40 mls/hr Levothyroxine Sodium (Synthroid) 75 mcg PO DAILY@0630 [facility] Last Admin: 12/24/18 06:01 Dose: 75 mcg Morphine Sulfate (Morphine) 2 mg IVP Q4 PRN PRN Reason: Pain, severe (8-10) Last Admin: 12/23/18 11:21 Dose: 2 mg Morphine Sulfate (Morphine) 2 mg IVP Q4 PRN PRN Reason: Pain, severe (8-10) Ondansetron HCl (Zofran Inj) 4 mg IVP ONCE PRN PRN Reason: Nausea/Vomiting Oxycodone HCl (Oxycodone Immediate Release Tab) 5 mg PO Q4 PRN PRN Reason: Pain, moderate (4-7) Last Admin: 12/23/18 14:28 Dose: 5 mg Pantoprazole Sodium (Protonix Inj) 40 mg IVP DAILY [facility] Last Admin: 12/24/18 09:21 Dose: 40 mg Senna/Docusate Sodium (Senokot S 50 Mg-8.6 Mg) 1 tab PO HS [facility] Last Admin: 12/23/18 21:05 Dose: 1 tab - Labs Labs: 12/24/18 05:15 12/24/18 05:15 PT 12.1 Seconds (9.8-13.1) 12/20/18 17:27 INR 1.1 12/20/18 17:27 APTT 34.9 Seconds (25.6-37.1) 12/20/18 17:27 - Skin Additional comments: oBJECTIVE SYSTEMIC WNL Musculoskeltal - stance/gait- defrred R hip wound benign N/V intact Assessment and Plan - Assessment and Plan (Free Text) Assessment: A-s/p R THR excellent progress P- orthopedicaLLY STABLE FOR TRANSFER
[2018-12-24] MEDS: Docusate-Senna 50 mg-8.6 mg Tab PO SCH (21:02)
[2018-12-25 00:39] VITALS: PULSE 82
[2018-12-25] MEDS: Levothyroxine 75 MCG TAB PO SCH (05:37)
[2018-12-25 07:37] VITALS: BP 141/69; RESP 20; TEMP 98.9; O2SAT 97
[2018-12-25] MEDS: Enoxaparin 40 mg Syringe SC SCH (08:23)
[2018-12-25] MEDS: Cholecalciferol 1,000 INTLU TAB PO SCH (08:24)
[2018-12-25] MEDS: oxyCODONE 5 mg Immediate Release Tab PO PRN (08:27)
--- NOTE | 2018-12-25 11:31 | CP.PCM.DIS ---
Provider - Provider Date of Admission: 12/20/18 20:42 Attending physician: Jadon Maldonado MD Consults: 12/20/18 21:32 Orthopedic Consult Stat Comment: Consulting Provider: Chidi Mosley III Consulting Physician: Chidi Mosley III Reason for Consult: right hip fracture 12/21/18 00:42 Nursing Referral for Wound Care Routine Comment: Physician Instructions: Reason For Exam: dylan scale protocol 12/21/18 10:59 Cardiology Consult Routine Comment: Consulting Provider: Francesco Golden Consulting Physician: Francesco Golden Reason for Consult: CARDIOLOGY CLEARANCE FOR SURGERY 12/22/18 17:52 Case Management Referral Routine Comment: Physician Instructions: Reason For Exam: Reason for Referral: Discharge Planning Time Spent in preparation of Discharge (in minutes): 30 Diagnosis - Discharge Diagnosis (1) Intertrochanteric fracture of right hip Status: Acute (2) Urinary tract infection Status: Acute (3) Vitamin D deficiency Status: Acute (4) Hypertension Status: Acute (5) Hypothyroidism Status: Acute Hospital Course - Lab Results Lab Results: Micro Results 12/22/18 10:57 Urine,Random Urine Culture - Final Escherichia Coli Enterococcus Faecalis 12/23/18 12:00 Blood-Venous Blood Culture - Preliminary NO GROWTH AFTER 24 HOURS Most Recent Lab Values WBC 5.0 K/uL (4.8-10.8) 12/24/18 05:15 RBC 2.99 Mil/uL (3.80-5.20) L 12/24/18 05:15 Hgb 9.7 g/dL (12.0-16.0) L 12/24/18 05:15 Hct 28.7 % (34.0-47.0) L 12/24/18 05:15 MCV 96.2 fl (81.0-99.0) 12/24/18 05:15 MCH 32.5 pg (27.0-31.0) H 12/24/18 05:15 MCHC 33.8 g/dL (33.0-37.0) 12/24/18 05:15 RDW 12.4 % (11.5-14.5) 12/24/18 05:15 Plt Count 160 K/uL (130-400) 12/24/18 05:15 MPV 8.1 fl (7.2-11.7) 12/20/18 17: Neut % (Auto) 86.0 % (50.0-75.0) H 12/20/18 17:27 Lymph % (Auto) 4.8 % (20.0-40.0) L 12/20/18 17:27 [place] % (Auto) 8.8 % (0.0-10.0) 12/20/18 17: Eos % (Auto) 0.2 % (0.0-4.0) 12/20/18 17: Baso % (Auto) 0.2 % (0.0-2.0) 12/20/18 17: Neut # (Auto) 8.1 K/uL (1.8-7.0) H 12/20/18 17: Lymph # (Auto) 0.4 K/uL (1.0-4.3) L 12/20/18 17: [place] # (Auto) 0.8 K/uL (0.0-0.8) 12/20/18: Eos # (Auto) 0.0 K/uL (0.0-0.7) 12/20/18 17: Baso # (Auto) 0.0 K/uL (0.0-0.2) 12/20/18 17: Neutrophils % (Manual) 84 % (42-75) H 12/20/18 17: Lymphocytes % (Manual) 4 % (20-50) L 12/20/18 17: Reactive Lymphs % 1 % (0-0) H 12/20/18 17: Monocytes % (Manual) 11 % (0-10) H 12/20/18 17: Platelet Estimate Normal (NORMAL) 12/20/18 17: Large Platelets Present 12/20/18 17: PT 12.1 Seconds (9.8-13.1) 12/20/18 17: INR 1.1 12/20/18 17: APTT 34.9 Seconds (25.6-37.1) 12/20/18 17: Sodium 133 mmol/l (132-148) 12/24/18 05:15 Potassium 3.8 MMOL/L (3.6-5.0) 12/24/18 05:15 Chloride 102 mmol/L (98-107) 12/24/18 05:15 Carbon Dioxide 26 mmol/L (22-30) 12/24/18 05:15 Anion Gap 9 (10-20) L 12/24/18 05:15 BUN 18 mg/dl (7-17) H 12/24/18 05:15 Creatinine 0.7 mg/dl (0.7-1.2) 12/24/18 05:15 Est GFR ( Amer) > 60 12/24/18 05:15 Est GFR (Non-Af Amer) > 60 12/24/18 05:15 Random Glucose 112 mg/dL (65-105) H 12/24/18 05:15 Calcium 8.0 mg/dL (8.4-10.2) L 12/24/18 05:15 25-OH Vitamin D Total 25.0 NG/ML (30.0-100.0) L 12/21/18 15:45 Urine Color Yellow (YELLOW) 12/21/18 14:30 Urine Clarity Hazy (Clear) 12/21/18 14:30 Urine pH 8.0 (5.0-8.0) 12/21/18 14:30 Ur Specific [place] 1.013 (1.003-1.030) 12/21/18 14:30 Urine Protein Negative mg/dL (NEGATIVE) 12/21/18 14:30 Urine Glucose (UA) Neg mg/dL (NEGATIVE) 12/21/18 14:30 Urine Ketones Trace mg/dL (NEGATIVE) 12/21/18 14:30 Urine Blood Small (NEGATIVE) 12/21/18 14:30 Urine Nitrate Positive (NEGATIVE) H 12/21/18 14:30 Urine Bilirubin Negative (NEGATIVE) 12/21/18 14:30 Urine Urobilinogen 0.2-1.0 mg/dL (0.2-1.0) 12/21/18 14:30 Ur Leukocyte Esterase Trace Julien/uL (Negative) 12/21/18 14:30 Urine RBC (Auto) 2 /hpf (0-3) 12/21/18 14:30 Urine Microscopic WBC 12 /hpf (0-5) H 12/21/18 14:30 Ur Squamous Epith Cells 6 /hpf (0-5) H 12/21/18 14:30 Urine Bacteria Few (<OCC) H 12/21/18 14:30 Blood Type A POSITIVE 12/22/18 13:15 Antibody Screen Negative 12/22/18 13:15 Crossmatch See Detail 12/22/18 13:15 BBK History Checked Patient has bt 12/22/18 13:15 - Hospital Course Hospital Course: 83 YR OLD FEMALE S/P ACCIDENTAL FALL WITH R HIP FRACTURE.SHE HAS A HISTORY OF HYPERTENSION,HYPOTHYROIDISM AND IS S/P AAA SURGERY IN THE PAST.HER HOSPITAL COURSE WAS REMARKABLE FOR SURGICAL REPAIR OF THE R HIP AND DEVELOPMENT OF UTI. SHE WILL BE TRANSFERRED TO THE [facility] UN[facility] FOR OT/PT AND IV ANTIBIOTIC RX Discharge Exam - Head Exam Head Exam: ATRAUMATIC, NORMAL INSPECTION, NORMOCEPHALIC - Eye Exam Eye Exam: EOMI, Normal appearance, PERRL Pupil Exam: NORMAL ACCOMODATION, PERRL - GI/Abdominal Exam GI & Abdominal Exam: Normal Bowel Sounds - Rectal Exam Rectal Exam: NORMAL INSPECTION - Extremities Exam Extremities exam: tenderness Additional comments: R HIP - Neurological Exam Neurological exam: Alert, CN II-XII Intact, Normal Gait, Oriented x3, Reflexes Normal - Psychiatric Exam Psychiatric exam: Normal Affect, Normal Mood - Skin Skin Exam: Dry, Intact, Normal Color, Warm Discharge Plan - Follow Up Plan Condition: STABLE Disposition: HOME/ ROUTINE Instructions: Femur Fracture (DC), Anterior Hip Replacement (DC), Weight- Bearing Restrictions Additional Instructions: follow up with surgeon 1 week foot flat 10% of weight Referrals: Chidi Mosley III, MD [Staff Provider] - Ash Sears MD [Family Provider] -
--- NOTE | 2018-12-25 13:00 | CP.PCM.PN ---
Subjective - Date & Time of Evaluation Date of Evaluation: 12/26/18 Time of Evaluation: 12:00 - Subjective Subjective: NO CHEST PAIN OR SOB Objective - Vital Signs/Intake and Output Vital Signs (last 24 hours): Temp Pulse Resp BP Pulse Ox 98.9 F 82 20 141/69 97 12/25/18 07:36 12/25/18 07:36 12/25/18 07:36 12/25/18 07:36 12/25/18 07:36 Intake and Output: 12/25/18 12/25/18 06:59 18:59 Intake Total 960 Balance 960 - Medications Medications: Current Medications Amlodipine Besylate (Norvasc) 5 mg PO QPM [facility] Last Admin: 12/24/18 17:14 Dose: 5 mg Cholecalciferol (Vitamin D) 1,000 intlu PO DAILY [facility] Last Admin: 12/25/18 08:24 Dose: 1,000 intlu Enoxaparin Sodium (Lovenox) 40 mg SC DAILY [facility]; Protocol Last Admin: 12/25/18 08:23 Dose: 40 mg Ferrous Sulfate (Feosol) 325 mg PO BID [facility] Last Admin: 12/25/18 08:24 Dose: 325 mg Folic Acid (Folic Acid) 1 mg PO DAILY [facility] Last Admin: 12/25/18 08:25 Dose: 1 mg Ceftriaxone Sodium 1 gm/ (Sodium Chloride) 100 mls @ 100 mls/hr IVPB DAILY [facility] Last Admin: 12/25/18 08:23 Dose: 100 mls/hr Vancomycin HCl 1 gm/ Sodium (Chloride) 250 mls @ 166.667 mls/hr IVPB Q12@0000,1200 [facility]; Protocol Last Admin: 12/25/18 12:21 Dose: 166.667 mls/hr Lactated Ringer's (Lactated Ringer's) 1,000 mls @ 40 mls/hr IV .Q24H [facility] Last Admin: 12/24/18 23:52 Dose: 40 mls/hr Levothyroxine Sodium (Synthroid) 75 mcg PO DAILY@0630 [facility] Last Admin: 12/25/18 05:37 Dose: 75 mcg Morphine Sulfate (Morphine) 2 mg IVP Q4 PRN PRN Reason: Pain, severe (8-10) Ondansetron HCl (Zofran Inj) 4 mg IVP ONCE PRN PRN Reason: Nausea/Vomiting Oxycodone HCl (Oxycodone Immediate Release Tab) 5 mg PO Q4 PRN PRN Reason: Pain, moderate (4-7) Last Admin: 12/25/18 08:27 Dose: 5 mg Pantoprazole Sodium (Protonix Inj) 40 mg IVP DAILY [facility] Last Admin: 12/25/18 08:24 Dose: 40 mg Senna/Docusate Sodium (Senokot S 50 Mg-8.6 Mg) 1 tab PO HS [facility] Last Admin: 12/24/18 21:02 Dose: 1 tab - Labs Labs: 12/24/18 05:15 12/24/18 05:15 PT 12.1 Seconds (9.8-13.1) 12/20/18 17:27 INR 1.1 12/20/18 17:27 APTT 34.9 Seconds (25.6-37.1) 12/20/18 17:27 - Respiratory Exam Respiratory Exam: Clear to Ausculation Bilateral - Cardiovascular Exam Cardiovascular Exam: REGULAR RHYTHM, +S1, +S2, Murmur - Extremities Exam Additional comments: NO LE EDEMA Assessment and Plan - Assessment and Plan (Free Text) Assessment: S/P RIGHT THR HYPERTENSION HYPOTHYROIDISM UTI Plan: FOR DISCHARGE TO [facility] CONTINUE AMLODIPINE, LOVENOX, LEVOTHYROXINE AND ANTIBIOTICS
--- NOTE | 2018-12-25 13:14 | CP.PCM.PN ---
Subjective - Date & Time of Evaluation Date of Evaluation: 12/25/18 Time of Evaluation: 12:45 - Subjective Subjective: S- pt OOB comfortable and without complaints Objective - Vital Signs/Intake and Output Vital Signs (last 24 hours): Temp Pulse Resp BP Pulse Ox 98.9 F 82 20 141/69 97 12/25/18 07:36 12/25/18 07:36 12/25/18 07:36 12/25/18 07:36 12/25/18 07:36 Intake and Output: 12/25/18 12/25/18 06:59 18:59 Intake Total 960 Balance 960 - Medications Medications: Current Medications Amlodipine Besylate (Norvasc) 5 mg PO QPM [facility] Last Admin: 12/24/18 17:14 Dose: 5 mg Cholecalciferol (Vitamin D) 1,000 intlu PO DAILY [facility] Last Admin: 12/25/18 08:24 Dose: 1,000 intlu Enoxaparin Sodium (Lovenox) 40 mg SC DAILY [facility]; Protocol Last Admin: 12/25/18 08:23 Dose: 40 mg Ferrous Sulfate (Feosol) 325 mg PO BID [facility] Last Admin: 12/25/18 08:24 Dose: 325 mg Folic Acid (Folic Acid) 1 mg PO DAILY [facility] Last Admin: 12/25/18 08:25 Dose: 1 mg Ceftriaxone Sodium 1 gm/ (Sodium Chloride) 100 mls @ 100 mls/hr IVPB DAILY [facility] Last Admin: 12/25/18 08:23 Dose: 100 mls/hr Vancomycin HCl 1 gm/ Sodium (Chloride) 250 mls @ 166.667 mls/hr IVPB Q12@0000,1200 [facility]; Protocol Last Admin: 12/25/18 12:21 Dose: 166.667 mls/hr Lactated Ringer's (Lactated Ringer's) 1,000 mls @ 40 mls/hr IV .Q24H [facility] Last Admin: 12/24/18 23:52 Dose: 40 mls/hr Levothyroxine Sodium (Synthroid) 75 mcg PO DAILY@0630 [facility] Last Admin: 12/25/18 05:37 Dose: 75 mcg Morphine Sulfate (Morphine) 2 mg IVP Q4 PRN PRN Reason: Pain, severe (8-10) Ondansetron HCl (Zofran Inj) 4 mg IVP ONCE PRN PRN Reason: Nausea/Vomiting Oxycodone HCl (Oxycodone Immediate Release Tab) 5 mg PO Q4 PRN PRN Reason: Pain, moderate (4-7) Last Admin: 12/25/18 08:27 Dose: 5 mg Pantoprazole Sodium (Protonix Inj) 40 mg IVP DAILY [facility] Last Admin: 12/25/18 08:24 Dose: 40 mg Senna/Docusate Sodium (Senokot S 50 Mg-8.6 Mg) 1 tab PO HS [facility] Last Admin: 12/24/18 21:02 Dose: 1 tab - Labs Labs: 12/24/18 05:15 12/24/18 05:15 PT 12.1 Seconds (9.8-13.1) 12/20/18 17:27 INR 1.1 12/20/18 17:27 APTT 34.9 Seconds (25.6-37.1) 12/20/18 17:27 - Additional Findings Additional findings: Objective systemic- wnl Musculoskekeltal stance/gait- defrred wound benign N/V intact no deficits post op xray- excellent position of construct Assessment and Plan - Assessment and Plan (Free Text) Assessment: A- s/p THR for R hip fx Plan: P- orthopedically stable for TCU transfer with protected weight bearing
--- NOTE | 2018-12-25 18:54 | OP ---
PROCEDURE DATE: 12/22/2018 PREOPERATIVE DIAGNOSES: 1. Basicervical intertrochanteric fracture of the right femur. 2. Preexisting osteoarthritis of the right hip. 3. Osteopenia. POSTOPERATIVE DIAGNOSES: 1. Basicervical intertrochanteric fracture of the right femur. 2. Preexisting osteoarthritis of the right hip. 3. Synovitis of the right hip. 4. Iliopsoas tendon contracture. OPERATION PERFORMED: 1. Right total hip replacement arthroplasty. 2. Open reduction and internal fixation of intertrochanteric right femur fracture. 3. Release of iliopsoas tendon. 4. Autograft bone graft. 5. Computer navigation. SURGEON: Chidi Mosley MD WINDSCREEN FITTER: ANDRE Durham, certified registered nursing first mate. SECOND INTERNATIONAL SALES MANAGER: Keo Garcia PA-C SECOND INTERNATIONAL SALES MANAGER: Irene Harrell PA-C OPERATIVE FINDINGS: 1. Displaced basicervical intertrochanteric fracture of the right femur. 2. Preexisting osteoarthritis of the right hip. 3. Synovitis of the right hip. 4. Osteopenia with poor bone quality. ESTIMATED BLOOD LOSS: Approximately 125 mL. SPECIMENS REMOVED: Bone, cartilage, and synovium. BLOOD PRODUCTS: No blood products given. DRAINS: No drains. POSTOPERATIVE CONDITION: Stable. TIME OF SURGERY: Time in the room 1425. Incision time 1540. OPERATIVE INDICATION: Leanne Elizalde is an 83-year-old woman who presents after a fall at home. The patient presented to the emergency room with a basicervical intertrochanteric fracture of the right femur. The patient also had diagnosed preexisting osteoarthritis of the right hip. The patient was admitted and stabilized. Pros, cons, risks and benefits of surgical approach were discussed with the patient and her daughter. The possibility of mechanical failure, infection, thromboembolic disease, possibility of secondary or tertiary surgery was discussed. Possibility of recurrent dislocation if hip replacement is chosen, possibility of nerve injury was discussed. The concept of the anterior approach was discussed at length. Alternative procedures including benign neglect, open reduction and internal fixation with an interlocking screw construct and jose construct were discussed. The problem with the poor bone quality was discussed at length as well. The patient and her daughter decided on hip replacement arthroplasty and the aforementioned was implemented. Again, the problem with internal fixation and her bone quality was discussed, the advantages of total hip replacement were discussed. Pros, cons, risks and benefits were discussed. The possibility of mechanical failure, infection, dislocation, nerve injury, thromboembolic disease secondary or tertiary surgery was discussed. The patient can no longer withstand the discomfort and wished the surgery to be accomplished. DESCRIPTION OF PROCEDURE: After having obtained informed consent, after having obtained a medical clearance from Dr. Maldonado, after having identified side, site, and procedure and a critical pause/time-out, after the satisfactory induction of the anesthetic by Dr. Nolan Tapia, the patient identified as Leanne Elizalde, was placed in a supine position with all bony prominences well padded using the AMIS traction positioner. Using the AMIS traction positioner, the right lower extremity was prepped and draped in the usual fashion in the AMIS traction position. Verification of position of the fracture with two turns of traction was offered on image intensification views. Verification of the position was evaluated and preoperative evaluation of the fracture on CT scan and x-ray is coordinated with the position intraoperatively with respect to leg lengths, etc. The possibility of leg length discrepancy was discussed at length. This having been accomplished, preparation was made for computer navigation for the acetabular position. This having been accomplished, the right lower extremity was prepped and draped in the usual fashion for a lower extremity anterior approach hip replacement surgery. After sterilely prepping and draping, after having reviewed the intraoperative image, an incision was described three fingerbreadths posterior to the anterior-superior iliac spine and one fingerbreadth distal and 4 inches distal to that. The skin incision was carried down through the skin and subcutaneous tissue. Hemostasis was controlled with the Aquamantys. The fascia superficial to the tensor fascia femoris was divided. The anterior aspect of the tensor fascia femoris was identified. The tensor fascia femoris muscle was taken down from the investing fascia. The modified Adson-Nathaniel retractor was placed horizontally. The posterior aspect of the rectus femoris muscle was controlled. Hemostasis was controlled. At this point in time, the Adson-Nathaniel modified Medacta retractor was placed deeper and horizontally. The fascia was identified. With external rotation of the hip, the fascia was carefully divided practically on a cell by cell layer to protect the underlying lateral femoral circumflex vasculature. This having been accomplished, the lateral femoral circumflex vessels were controlled using tonsil clamps and suture ligature. The vessels were controlled with suture ligature. They were divided at this point in time with the internal rotation of the hip. An incision was described after the fat pad superficial to the capsule was removed. An incision was described at the lateral aspect of the acetabulum after removal of the fat pad superficial to the capsule. This was brought in line with the acetabular mouth and then now externally rotating the incision, the incision was brought down and the capsule vertically to the area of the fracture, to the area of the intertrochanteric line. The intertrochanteric tubercle was identified. The capsule was elevated. An episiotomy in the capsule was accomplished and the capsule was tagged, and at this point in time, a Ray-Berna soaked in epinephrine solution was impacted into the acetabulum. The retractors were placed. The femoral neck osteotomy was accomplished using an oscillating saw. This having been accomplished, the napkin ring was removed. The femoral neck was exposed with external rotation, and using the periosteum elevator, the corkscrew was introduced and the femoral head was removed from the acetabulum. The femoral head measures 44 mm. This having been accomplished, the femoral head and neck were removed from the acetabulum. At this point, the acetabulum was exposed with the Charnley retractor on the capsular flap, which had been tagged and in the soft spot anteriorly. Great care was taken to avoid injury to the neurocirculatory structures. The labrum was excised after controlling the vasculature with the Aquamantys. It should be noted that there was an extensive amount of synovectomy and it should be noted that great care was taken at the level of the femoral neck osteotomy. Using the oscillating saw, the napkin ring was removed from the neck of the femur and this was important in terms of the careful planning of the osteotomy. This having been accomplished, femoral neck osteotomy having been accomplished, both with extensive preoperative planning and intraoperative planning having been accomplished, this was part of the addition of this as a separate procedure code. At this point in time, attention was turned to the anterior-superior iliac spine. Two incisions were accomplished using #11 blade followed by spreading. The two pins were introduced as the platform for the optical accelerometer. The computer navigation is an optical based accelerometer device, and at this point in time, the camera was placed and the position was verified. This having been accomplished, using the oscillating saw, the femoral neck osteotomy having been accomplished, the acetabulum was exposed. 15 degrees of external rotation are offered to improve exposure of the acetabulum. At this point in time, the labrum was excised. The pulvinar was excised after control of the bleeding with the Aquamantys. A portion of the reflected head of rectus femoris was elevated. The Medacta retractor was placed, and with the Charnley, the acetabulum was exposed. Sequential reaming was carried out from 44 to 48 mm for the size of the cup. This having been accomplished, the abduction was 43 degrees and the anteversion approximately 22 degrees. At this point in time, computer navigation commences. The optical camera was placed on the platform and the plane of the pelvis was identified as this being left anterior-superior iliac spine and the right anterior-superior iliac spine. This having been registered, the probe was placed on the reamer and the position was found to be approximately 43 degrees of abduction and 22 degrees of anteversion. The reamings are denuded of articular cartilage, and at this point in time, the trialing of the cup commences. A 48 mm was found to be excellent. At this point in time, the autograft bone grafting, which consists of the reamings denuded of articular cartilage was packed in the acetabulum. This having been accomplished with the cup in the acetabulum, 48 mm, the cup was impacted and the probe was introduced and it measures 43 degrees of abduction and 22 degrees of anteversion. The cup was found to be stable. Attention was now turned to the femur. It should be noted again the reamers were monitored using a computer navigation to approximately 43 degrees of abduction and 23 degrees of anteversion. The Medacta cup was impacted in that attitude after autograft bone grafting to the acetabulum was accomplished. Autograft bone graft to the acetabulum having been accomplished with the reamings denuded of articular cartilage, at this point in time, the iliopsoas tendon was released. With external rotation of the femur, the pubofemoral ligament and the iliofemoral ligament and the ischiofemoral ligament are released. Further release was accomplished of the superior capsule and superior capsule was released, and at this point in time, the portion of the iliopsoas tendon was released. External rotation of the femur was accomplished. The intertrochanteric component of the basicervical fracture was identified. At this point in time, open reduction and internal fixation of the intertrochanteric aspect of the right hip fracture was exposed. The AO wire passer was placed around the trochanter above the level of the lesser trochanter. The 1.7-mm wire was placed around the fracture, and open reduction and internal fixation of the intertrochanteric fracture of the right hip was then accomplished with tensioning and crimping. Open reduction and internal fixation of the fracture was accomplished, the wire having been placed, crimping having been accomplished, fixation was found to be excellent. At this point in time, attention was turned to the femur. The femur was exposed with approximately 145 degrees of external rotation and extension. The femur having been identified, the bridge of bone between the neck and the trochanter was removed. Sequential reaming was carried out to the appropriate size Medacta stem. This having been accomplished, the standard stem with a 48 mm outer bearing was trialed. It was reduced, it was found to be excellent. Again, open reduction and internal fixation of the intertrochanteric aspect of the fracture had been accomplished and was stable. The iliopsoas tendon was released. At this point in time again, the wound was thoroughly irrigated. Hemostasis of the wound was accomplished with the Aquamantys. The appropriate-sized Medacta stem was introduced, please refer to the operative record, and the standard neck 28-mm head and 48-mm outer bearing were impacted. The hip was reduced and found to be stable in all planes. The wound was thoroughly irrigated. Hemostasis was controlled and closure was in layers. It should be noted that bone grafting to the proximal femur was accomplished from the bone removed at the time of the femoral neck osteotomy and this was bone grafted to the proximal femur. Blood loss was approximately 125 mL. At this point in time, introduction of FloSeal was accomplished. No blood products given, no drains. Closures in layers of 0 Quill followed by 0 Vicryl, 2-0 Vicryl and the pins had been removed from the computer navigation after the acetabular position was identified. Closure of the iliac crest was with Vicryl and nylon. Compression dressing was applied. Right hip was the correct hip. The patient again came through the emergency room as an emergency, and I was called on consult by Dr. Jadon Maldonado. Chidi Boiardo, MD [facility] # [id number]
--- NOTE | 2018-12-27 06:08 | OP ---
PROCEDURE DATE: 12/22/2018 OPERATIVE INDICATIONS: Leanne Elizalde is an 83-year-old woman who is a patient of Dr. Maldonado, who had sustained a fall and presents with an essentially pathologic basicervical intertrochanteric fracture of the right femur. The patient also has evidence of preexisting osteoarthritis probably accounting from the fracture pattern. OPERATIVE FINDINGS: 1. Displaced basicervical intertrochanteric fracture of the right femur. 2. Osteoarthritis of the right hip. POSTOPERATIVE DIAGNOSES: 1. Basicervical intertrochanteric fracture of the right femur. The fracture is essentially basicervical. 2. Preexisting osteoarthritis of the right hip. 3. Synovitis of the hip. OPERATIVE PROCEDURES: 1. Right total hip replacement, anterior approach. 2. Open reduction and internal fixation of intertrochanteric right femur fracture. 3. Release of iliopsoas tendon. 4. Autograft bone grafting to both the femur and the acetabulum. 5. Computer navigation. SURGEON: Chidi Mosley MD REGISTERED DIET TECHNICIAN: Kayla Baez, certified registered nursing janitorial assistant SECOND CREDIT INVESTIGATOR: Keo Garcia PA-C THIRD CREDIT INVESTIGATOR: Irene Harrell PA-C SPECIMENS REMOVED: Bone, cartilage, and synovium. ESTIMATED BLOOD LOSS: Approximately 125 mL DRAINS: No drains. BLOOD PRODUCTS: No blood products given. POSTOPERATIVE CONDITION: Stable. TIME IN THE ROOM: 1425 INCISION TIME: 1540 DESCRIPTION OF PROCEDURE: Pros, cons, risks and benefits of surgical approach were discussed at length with the patient and her daughter. The concept of open reduction and internal fixation with interlocking nail was discussed vis-a-vis total hip replacement. Because the patient's fixation is of concern, the total hip replacement is opted for by the patient and her daughter. Possibility of mechanical failure, infection, nerve injury, secondary and tertiary surgery is discussed. The patient can no longer stand the discomfort and wished the surgery to be accomplished. After having obtained informed consent, after having identified the site and side of procedure and a critical pause/timeout, and after satisfactory induction of anesthetic, the patient was identified as Leanne Elizalde, was placed in the supine position with all bony prominences well padded. The right lower extremity was placed in the [facility] traction positioner. Preparation was made for computer navigation as well with the ZeroDesktopoint optical based accelerometer computer navigation. After having obtained informed consent, after the satisfactory induction of the anesthetic by Dr. Nolan Tapia, and after having identified the site and side of the procedure and a critical pause/timeout, under the surgeon's direction, the fluoroscope was positioned, video images were generated, therapeutic decisions were made therefrom. retractors were applied, and at this point in time, after sterilely prepping and draping, an incision was described one fingerbreadth distal to the anterior superior iliac spine and 3 fingerbreadths posteriorly, superficial to the tensor fascia kimberlee muscle. This having been accomplished, an incision was described one fingerbreadth distal to the ASIS and 4 inches distal to that, skin incision was carried down through the skin and subcutaneous tissue. The fascia was divided. The tensor fascia femoris muscle was taken down from the investing fascia. This having been accomplished, the Adson-Nathaniel retractor was placed horizontally, and this having been accomplished, the posterior aspect of the musculature was identified and the Adson-Nathaniel retractor was placed deeper and the fascia was exposed. At this point in time, the fascia was carefully divided. The anterior branch of the lateral femoral circumflex vessel was identified. These vessels were controlled with suture and ligature. This having been accomplished, the vessels having been controlled with suture and ligature, with the lower extremity in internal rotation, an incision was described at the lateral aspect of the acetabulum, extending medially. At this point in time, the leg was externally rotated and brought into external rotation and the incision was carried out distally to the iliopsoas insertion on the lesser trochanter. At this point in time, at the intertrochanteric line, having palpated the intertrochanteric tubercle, the capsule was brought back laterally. The entire trochanter was exposed. At this point in time, the Ray-Berna sponge soaked with an epinephrine solution was placed in the acetabulum. Femoral neck osteotomy was accomplished. It should be noted that the femoral neck osteotomy should be considered an extra billing code because of the preoperative amount of time done to plan it and the intraoperative planning as well with the computer navigation. At this point in time, the femoral head and neck were removed from the acetabulum. The corkscrew had been introduced. Arthrotomy and synovectomy at this point in time were accomplished. The Aquamantys was used to control the pulvinar bleeding. The pulvinar was removed, extensive synovitis was encountered. Synovectomy was accomplished. Hemostasis was controlled with the Aquamantys device. This having been accomplished, with external rotation of the femur at this point in time, the iliopsoas tendon was partially released. The pubofemoral, iliofemoral, and ischiofemoral ligaments were released. External rotation was continued. This was found to be the intertrochanteric component of the fracture at this point in time. The femur was exposed, and at this point in time, with minimal dissection, the suture passer was placed around the intertrochanteric fragment, the lower intertrochanteric aspect of the fracture. The 1.7-mm Synthes wire was placed around it. Cerclage wiring was accomplished for open reduction and internal fixation. At this point in time, with exposure of the femur by extending the femur, externally rotating and abducting, the femoral canal was found. Sequential reaming was carried out to the femoral component. The appropriate size femoral broach was implanted. The standard head and neck were applied. The bipolar outer bearing was applied and trialing was accomplished. It should be noted prior to this, that attention had been turned to the acetabulum. The acetabulum exposure had been accomplished using the Charnley retractor and the Medacta Hohmann retractor. At this point in time, two supporting pins were placed in the anterior superior iliac spine and the optical based Intellijoint camera was placed. At this point in time, registration commenced at the plane of the pelvis pending left anterior superior iliac spine and right anterior superior iliac spine were registered. This having been accomplished, the reaming commenced to approximately 48 mm. Reaming was carried out in abduction and anteversion to approximately 42 degrees, 43 degrees, and 20 degrees of anteversion. The reamings were denuded of articular cartilage. At this point in time, verification of position was offered by image intensification, and this having been accomplished, the reaming having been accomplished with the sensory guide on it verifying the position. At this point in time, the straight reamer was introduced with 48 mm Medacta shell. The shell was impacted and verification of position was offered in abduction 44 degrees and anteversion 20 degrees, 22 degrees. Position having been found acceptable, attention was turned to the femur, and again, the femur was addressed. Open reduction and internal fixation of the femur was accomplished as described above. The wire passer was placed around the greater trochanter in the intertrochanteric region. The wire was brought out. The jet wire tensioner was employed. The wire was tensioned. The crimping was accomplished and the fixation was found to be stable. This having been accomplished, sequential broaching was carried out to the appropriate size, standard head, standard neck and outer bearing, 48 mm outer bearing. The hip was reduced and found to be stable in all planes. To allow exposure, a portion of the iliopsoas tendon was released. At this point in time, the appropriate sized stem Medacta component was introduced with the 28 mm standard head and neck assembly and the 48 mm polyethylene outer bearing and the dual mobility construct. The hip was reduced and found to be stable in all planes. The wound was thoroughly irrigated. At this point in time, autograft bone grafting was accomplished to the proximal aspect of the femur. Autograft bone grafting had been accomplished to the acetabulum prior to impaction of the cuff. This having been accomplished, the open reduction internal fixation of the intertrochanteric component having been accomplished, the iliopsoas tendon having been released, the femoral neck osteotomy having been accomplished with autograft bone grafting and computer navigation having been accomplished, the wound was thoroughly irrigated. Hemostasis was controlled with the Aquamantys and the FloSeal. Blood loss was approximately 125 mL. Closure was with 0 Quill, followed by 0 Vicryl and 2-0 Vicryl and quentin for skin. The pins were removed from the anterior superior iliac spine and closure was in layers with interrupted Vicryl and nylon. A compression dressing was applied. Verification of the position was offered by image intensification used. Chidi Mosley MD
== END 2018-12-25 14:30 | DRG 470 ==
LOC: H.ER 16:18 → H.ERHOLD 20:42 → H.MEDSURG1 22:30
PROVIDERS: ADMIT Internal Medicine Pulmonary Disease; ATTEND Internal Medicine Pulmonary Disease
PROC: 0QS604Z Reposition Right Upper Femur with Internal Fixation Device, Open Approach (ICD-10-PCS; 2018-12-22)
PROC: 8E0WXBZ Computer Assisted Procedure of Trunk Region (ICD-10-PCS; 2018-12-22)
PROC: 3E0T3BZ Introduction of Anesthetic Agent into Peripheral Nerves and Plexi, Percutaneous Approach (ICD-10-PCS; 2018-12-22)
PROC: 3E0T33Z Introduction of Anti-inflammatory into Peripheral Nerves and Plexi, Percutaneous Approach (ICD-10-PCS; 2018-12-22)
PROC: 0SR90JZ Replacement of Right Hip Joint with Synthetic Substitute, Open Approach (ICD-10-PCS; principal; 2018-12-22 12:15)
DX: S72.141A Displaced intertrochanteric fracture of right femur, initial encounter for closed fracture (principal); N39.0 Urinary tract infection, site not specified; D62 Acute posthemorrhagic anemia; B95.2 Enterococcus as the cause of diseases classified elsewhere; B96.20 Unspecified Escherichia coli [E. coli] as the cause of diseases classified elsewhere; M16.11 Unilateral primary osteoarthritis, right hip; M65.851 Other synovitis and tenosynovitis, right thigh; E03.9 Hypothyroidism, unspecified; E55.9 Vitamin D deficiency, unspecified; I10 Essential (primary) hypertension; I73.9 Peripheral vascular disease, unspecified; E78.00 Pure hypercholesterolemia, unspecified; M85.88 Other specified disorders of bone density and structure, other site; R00.0 Tachycardia, unspecified; W01.0XXA Fall on same level from slipping, tripping and stumbling without subsequent striking against object, initial encounter; Y92.009 Unspecified place in unspecified non-institutional (private) residence as the place of occurrence of the external cause; Z87.891 Personal history of nicotine dependence; Z95.5 Presence of coronary angioplasty implant and graft; Z86.79 Personal history of other diseases of the circulatory system